=== PATIENT | female | born 1960 | race Caucasian/White ===

== ENCOUNTER 2017-08-21 10:11 | Outpatient (CLI) | payer MEDICARE, BC ==
--- NOTE | 2017-08-21 14:18 | MRI ---
LUMBAR SPINE MRI NONCONTRAST: Date: 08/21/17 CLINICAL HISTORY: Lumbar radiculopathy. No prior comparison. FINDINGS: The conus medullaris is normal in morphology, terminating at the T12-L1 level. There is a chronic parr perior end plate Schmorl's node of T12. There is also a Schmorl's node involving the inferior end pl ate of L5 which demonstrates mixed signal intensity with component of edema to indicate an acute com ponent. No adjacent disc space fluid. Incidental note of cyst of the medial aspect of the left kidney. L1-2, L2-3, and L3-4 levels reveal no high grade central canal or foraminal stenosis. At L4-5, there is a concentric disc bulge with mild narrowing of the central canal without high grad e foraminal stenosis. At L5-S1, there is a left subarticular disc extrusion superimposed upon broad based disc osteophyte complex which does impinge upon the traversing left S1 nerve root, and produces severe stenosis of t he left subarticular zone. Mild narrowing of the left neural foramen. No high grade right foraminal stenosis. There is mild bilateral facet hypertrophy. IMPRESSION: 1. Left subarticular disc extrusion L5-S1 level superimposed upon disc osteophyte complex with ho re left subarticular zone stenosis and resultant impingement upon the left S1 nerve root. 2. Acute Schmorl's node involving inferior L5 end plate. 3. Prominent sized chronic superior end plate T12 Schmorl's node. POS: [facility]
== END 2017-08-21 10:12 | disposition home or self-care (01) ==
LOC: TBSIIMAG 10:11
PROVIDERS: ATTEND Neurological Surgery
DX: M51.17 Intervertebral disc disorders with radiculopathy, lumbosacral region (principal); M51.46 Schmorl's nodes, lumbar region; M51.44 Schmorl's nodes, thoracic region
CPT/HCPCS: 72148

== ENCOUNTER 2017-09-26 05:54 | Day surgery (SDC) | payer MEDICARE, BC ==
--- NOTE | 2017-09-26 00:39 | HP ---
HISTORY OF PRESENT ILLNESS: Ms. Lorenzo presents to our clinic for evaluation of left-sided S1 radicu lopathy with an MRI from [facility] that reveals an L5 disk osteophyte complex to the left that impinges up on the descending S1 nerve root on the left side and match the symptoms well. She has treated this w ith injections, physical therapy, and medications to no avail and would like to move forward with jim chance if possible. PAST MEDICAL HISTORY: Significant for fibromyalgia, chronic fatigue syndrome, spinal stenosis. CURRENT MEDICATIONS: Belbuca, lorazepam, magnesium, and Vitamin D3. ALLERGIES: XYREM, PENICILLIN, and LATEX. PAST SURGICAL HISTORY: Tonsillectomy, tubal ligation, hysterectomy, vertebroplasty, and cataract jim chance. PHYSICAL EXAMINATION: The patient is alert and oriented x3. Gait is antalgic. Lower extremity jenna r exam was normal. ASSESSMENT: Lumbar herniated disk. PLAN: Dr. Miles met with the patient, reviewed imaging and ultimately advocated for a left L5 diskec marcus. He explained to the patient the risks, benefits, and alternatives to the procedure. The patie nt expressed understanding and would like to move forward with surgery as discussed. I do believe th e patient is mentally competent and capable of making medical decisions for herself and we will move forward with surgery as planned. Yosvany Buchanan PA-C, dictating under Dr. Miles.
[2017-09-26] MEDS ORDERED: Clindamycin/D5W 900 mg/50 ml Premix Bag ONE (06:18)
[2017-09-26] MEDS ORDERED: Levofloxacin 500 mg/D5W 100 ml Premix Bag ONE (06:18)
[2017-09-26] MEDS ORDERED: Bupivacaine/Epinephrine 0.25% 30 ML VIAL ONE (06:23)
[2017-09-26] MEDS ORDERED: Thrombin 5000 UNITS/5 ML VIAL ONE (06:23)
[2017-09-26] MEDS ORDERED: Fentanyl 250 MCG/5 ML VIAL ONE (06:33)
--- NOTE | 2017-09-26 08:03 | OP ---
DATE OF PROCEDURE: 09/26/2017 SURGEON: Fletcher Miles M.D. VESSEL CAPTAIN: Yosvany Buchanan PA-C INDICATION: Pain. DIAGNOSIS: Left S1 radiculopathy. PROCEDURE: Left L5 discectomy. ANESTHESIA: General. TECHNIQUE: The patient was brought into the operating room and placed under general anesthesia. She was flipped from a supine to a prone position on the operating room table. A linear incision was pl anned over the L5 segment. After prepping and draping and after an appropriate operative pause, the incision was created. The soft tissues were swept left of midline. A self-retaining retractor was p laced in the wound for optimal exposure. After confirming the appropriate level, C-arm fluoroscopy, a high-speed cutting drill bit as well as 2, 3 and 4 mm Kerrisons were used to perform laminectomy al vaishnavi the inferior aspect of L5 and superior aspect of S1. The descending S1 nerve root was identified and mobilized medially with a nerve root retractor. An annulotomy was performed and a large disk pr otuberance and disk material was removed until the lateral recesses including the descending S1 nerve root were well decompressed. The wound was then irrigated. Hemostasis was maintained throughout. The wound was then closed in anatomic layers and a pressure dressing was applied. There were no know n procedural complications.
[2017-09-26] MEDS ORDERED: Ketorolac Tromethamine 30 MG/ML VIAL ONE (15:28)
[2017-09-26] MEDS ORDERED: Propofol 200 MG/20 ML VIAL ONE (15:28)
[2017-09-26] MEDS ORDERED: Lidocaine 1% PF 5 ML VIAL ONE (15:28)
[2017-09-26] MEDS ORDERED: Dexamethasone 20 MG/5 ML VIAL ONE (15:28)
[2017-09-26] MEDS ORDERED: Ondansetron HCl/PF 4 MG/2 ML Vial ONE (15:28)
[2017-09-26] MEDS ORDERED: Glycopyrrolate 0.2 MG/ML 5 ML SYRINGE ONE (15:28)
== END 2017-09-26 11:05 | disposition home or self-care (01) ==
LOC: SDC 05:54
PROVIDERS: ATTEND Neurological Surgery
PROC: 01NB0ZZ Release Lumbar Nerve, Open Approach (ICD-10-PCS; principal; 2017-09-26)
DX: M54.18 Radiculopathy, sacral and sacrococcygeal region (principal); R53.82 Chronic fatigue, unspecified; Z79.891 Long term (current) use of opiate analgesic; Z79.899 Other long term (current) drug therapy; Z88.0 Allergy status to penicillin; Z88.8 Allergy status to other drugs, medicaments and biological substances; Z91.040 Latex allergy status; Z91.018 Allergy to other foods; Z98.51 Tubal ligation status; Z98.42 Cataract extraction status, left eye; Z98.41 Cataract extraction status, right eye; Z90.89 Acquired absence of other organs; Z90.710 Acquired absence of both cervix and uterus; Z98.890 Other specified postprocedural states
CPT/HCPCS: 76001; J0131; J1100; J1885; J1956; J2001; J2405; J2704; J3010; J3490